=== PATIENT | female | born 1995 | race African-American/Black ===

== ENCOUNTER 2016-07-15 12:56 | Emergency (ER) | payer SELFPAY ==
[2016-07-15 12:59] VITALS: BP 100/66; BMI 24.2
--- NOTE | 2016-07-15 13:19 | DR.GENAD ---
HPI - PCP Primary Care Physician: NFMaris - HPI Comment HPI Comment: GETTING WORSE. - Complaint/Symptoms Chief Complaint Doctors Comments: N/V/D AND COUGH AND CONGESTION TIMES ONE DAY. Chief Complaint:: PT. C/O N/V/D, ABDOMINAL PAIN. - Nurses notes reviewed Nurses Notes Review: Yes - Source History Provided: Patient - Mode of Arrival Mode of Arrival: Ambulatory - Timing Onset of Chief Complaint: 07/14/16 Came on: Suddenly - Duration Duration: Constant Duration: Days - Severity Severity: Moderate PMH - PMH Past Medical History: No Past Surgical History: No Surgical History: No History - Family History History of Family Medical Conditions: No - Social History Does patient currently use any type of tobacco product: No Have you used tobacco products in the last 12 months: No Type of Tobacco Use: None Does any household member use tobacco: No Alcohol Use: None Do you use any recreational Drugs:: No Lives With: Mom Lives Where: Home - infectious screening In the last 2 months have you had wt loss of >10#?: NO Have you had fever, night sweats or hemotysis?: No Have you traveled outside the country in the last 6 months?: No Isolation: Standard ROS - Review of Systems Constitutional: No Symptoms Reported Eyes: No Symptoms Reported ENTM: Nose Congestion. negative: Ear Pain, Nose Discharge, Throat Pain Respiratoy: No Symptoms Reported Cardiovascular: No Symptoms Reported Gastrointestinal/Abdominal: Abdominal Pain, Nausea Genitourinary: No Symptoms Reported Neurological: No Symptoms Reported Musculoskeletal: No Symptoms Reported Integumentary: No Symptoms Reported Hematologic/Lymphatic: No Symptoms Reported Endocrine: No Symptoms Reported All Other Systems: Reviewed and Negative PE - Vital Signs Vitals: Temperature 98.4 F Pulse Rate 77 Respiratory Rate 17 Blood Pressure [Left Arm] 121/78 Blood Pressure 100/66 O2 Sat by Pulse Oximetry 98 - General Limitations: No Limitations General Appearance: Alert - Head Head Exam: Normal Inspection - Eyes Eye exam: Normal Appearance - ENT ENT Exam: Normal External Ear Exam External Ear Exam: Normal External Inspection TM/Canal Exam: Bilateral Normal Nose Exam: Normal Nose Exam Mouth Exam: Normal Inspection Throat Exam: Normal Inspection - Neck Neck Exam: Normal Inspection - Chest Chest Inspection: Symmetric Chest Wall Rise - Respiratory Respiratory Exam: Normal Lung Sounds Bilat Respiratory Exam: Bilateral Clear to Auscultation - Cardiovascular Cardiovascular Exam: Regular Rate, Normal Rhythm, Normal Heart Sounds - Abdominal Exam Abdominal Exam: Normal Bowel Sounds, Soft. negative: Tenderness - Extremities Extremities Exam: Normal Inspection - Back Back Exam: Normal Inspection - Neurologic Neurological Exam: Alert, Oriented X3 - Skin Skin Exam: Normal Color MDM - Additional Information Additional Information Obtained From: Family - Differential Diagnosis Differential Diagnosis: BRONCHITIS, PNEUMONIA. UTI Course - Treatment Treatment: SEE ORDERS. - Education/Counseling Education/Counseling: Patient, Family, Education Educated On: Diagnosis, Needs for Follow Up ROR - Labs Reviewed Laboratory Results Reviewed?: Yes Laboratory: Specimen Type Clean catch urine 07/15/16 13:34 Urine Color Yellow (YELLOW) 07/15/16 13:34 Urine Appearance Clear (CLEAR) 07/15/16 13:34 Urine pH 6.0 (5.0 - 8.0) 07/15/16 13:34 Ur Specific [place] 1.020 (1.000-1.030) 07/15/16 13:34 Urine Protein 1+ (NEGATIVE) 07/15/16 13:34 Urine Glucose (UA) Negative (NEGATIVE) 07/15/16 13:34 Urine Ketones Negative (NEGATIVE) 07/15/16 13:34 Urine Occult Blood 1+ (NEGATIVE) 07/15/16 13:34 Urine Nitrite Negative (NEGATIVE) 07/15/16 13:34 Urine Bilirubin Negative (NEGATIVE) 07/15/16 13:34 Urine Urobilinogen 1+ (NORMAL) 07/15/16 13:34 Ur Leukocyte Esterase 2+ (NEGATIVE) 07/15/16 13:34 Urine RBC Rare /HPF (NEGATIVE) 07/15/16 13:34 Urine WBC 5-7 /HPF (NEGATIVE) 07/15/16 13:34 Ur Squamous Epith Cells Many /HPF (NEGATIVE) 07/15/16 13:34 Amorphous Sediment Trace /HPF (NEGATIVE) 07/15/16 13:34 Urine Bacteria Trace /HPF (NEGATIVE) 07/15/16 13:34 Urine Mucus Few /HPF (NEGATIVE) 07/15/16 13:34 Ur Culture Indicated? No/not indicated 07/15/16 13:34 - Diagnosis Discharge Problem: Bronchitis Abdominal pain Qualifiers: Abdominal location: generalized Qualified Code(s): R10.84 - Generalized abdominal pain - Discharge Plan Disposition: 01 HOME, SELF-CARE Condition: Stable Prescriptions: Amoxicillin [Amoxil 875 mg] 875 mg PO BID #20 tab Dicyclomine HCl [Bentyl tab 20 mg] 20 mg PO TID #15 tab Ondansetron HCl [Zofran Tab 4 mg] 4 mg PO Q8H PRN #12 tab PRN Reason: Nausea/Vomiting - Follow ups/Referrals Follow ups/Referrals: N[facility],None [Primary Care Provider] - 3 days - Instructions Instructions: Abdominal Pain, Adult, [id number], Acute Bronchitis, Easy-to- Read, Sinusitis, Adult Additional Instructions: RETURN TO ED IF WORSE.
[2016-07-15 13:56] LABS: BILIRUBIN,URINE NEGATIVE (NEGATIVE); BLOOD/HEMOGLOBIN,URINE 1+ (NEGATIVE); GLUCOSE, URINE NEGATIVE (NEGATIVE); KETONES,URINE NEGATIVE (NEGATIVE); LEUKOCYTE ESTERASE ,URINE 2+ (NEGATIVE); NITRITES,URINE NEGATIVE (NEGATIVE); PROTEIN,URINE 1+ (NEGATIVE); UROBILINOGEN,URINE 1+ (NORMAL)
[2016-07-15 14:25] LABS: APPEARANCE,URINE CLEAR (CLEAR); COLOR,URINE YELLOW (YELLOW); RBC,URINE RARE /HPF (NEGATIVE)
[2016-07-15 14:26] LABS: AMORPHOUS SEDIMENT,UR TRACE /HPF (NEGATIVE); BACTERIA,URINE TRACE /HPF (NEGATIVE); SQUAMOUS EPITHELIAL CELL,UR MANY /HPF (NEGATIVE)
[2016-07-15 14:27] LABS: MUCUS,URINE FEW /HPF (NEGATIVE)
== END 2016-07-15 14:38 | disposition home or self-care (01) ==
LOC: ER 13:05
DX: J40 Bronchitis, not specified as acute or chronic (principal); R10.84 Generalized abdominal pain
CPT/HCPCS: 81001; 99282; 99283